=== PATIENT | female | born 1960 | race African-American/Black ===

== ENCOUNTER 2019-03-10 14:51 | Inpatient (IN) | payer SELFPAY ==
[~2019-03-10 14:51] MED LIST: Lidocaine 1% PF 5 ML VIAL ONE; Ondansetron PF 4 MG/2 ML Vial ONE; PHENYLEPHRINE-NS 100 MCG/ML 10 ML SYRINGE ONE; PROPOFOL 200 MG/20 ML VIAL ONE; Rocuronium Bromide 10 MG/ML (10ML VIAL) ONE; ePHEDrine/0.9% NaCl/PF SYRINGE 50 mg/10 ml ONE
[2019-03-10] MEDS ORDERED: Insulin Regular 300 UNITS/3 ML VIAL SC PRN (16:05)
[2019-03-10] MEDS ORDERED: hydrALAZINE 20 MG/ML VIAL SLOW IVP PRN ×2 (16:05→19:37)
[2019-03-10] MEDS ORDERED: Dextrose 50% Abboject 50 ML SYRINGE SLOW IVP PRN (16:05)
[2019-03-10] MEDS ORDERED: Ondansetron PF 4 MG/2 ML Vial IVP PRN ×2 (16:05→19:37)
[2019-03-10] MEDS ORDERED: Dextrose 5% in Water 1,000 ML IV PRN (16:05)
[2019-03-10] MEDS ORDERED: Promethazine HCl 25 MG/ML VIAL IM PRN ×3 (16:05→19:37)
[2019-03-10] MEDS ORDERED: Losartan 25 MG TAB PO SCH (16:15)
[2019-03-10] MEDS ORDERED: Sodium Chloride 0.9% 1,000 ML IV SCH (16:15)
[2019-03-10] MEDS ORDERED: Levothyroxine Sodium 125 MCG TAB PO SCH (16:15)
[2019-03-10] MEDS ORDERED: Morphine 4 MG/ML VIAL SLOW IVP PRN (16:19)
[2019-03-10] MEDS ORDERED: Morphine 2 MG/ML SYRINGE SLOW IVP PRN (16:19)
[2019-03-10] MEDS ORDERED: Lidocaine 1% w/Epinephrine 1:100K 20 ML VIAL ONE (16:51)
[2019-03-10] MEDS ORDERED: Bupivacaine 0.25% HCL 30 ML VIAL ONE (16:51)
[2019-03-10] MEDS ORDERED: Fentanyl 100 MCG/2 ML VIAL ONE ×2 (16:57→19:56)
[2019-03-10] MEDS ORDERED: HYDROmorphone 0.5 MG/0.5 ML SYRINGE ONE (16:58)
[2019-03-10] MEDS ORDERED: ceFOXitin 2 GM/50 ML Duplex BAG ONE (17:23)
--- NOTE | 2019-03-10 18:22 | CON ---
DATE OF CONSULTATION: 03/10/2019 CONSULTING PHYSICIAN: Lee Mar DO REASON FOR CONSULTATION: Incarcerated ventral hernia. HISTORY OF PRESENT ILLNESS: The patient is a morbidly obese 58-year-old black female. She has a history of a couple of prior abdominal operations, one of which was through an upper midline laparotomy and one of which was a right paramedian incision. These were both apparently done around 40 years ago. She acknowledges the presence of this hernia over about the past 10 years. She states she was told not to worry about it if it did not bother her. About 4 months ago, she presented to the hospital in [place] because this could not be reduced. It was painful. They were able to reduce the hernia in [place], but she tells me that she was not instructed to have surgical followup for the repair of this. She notes that about 48 hours ago that this has been protruding and progressively uncomfortable. She has been vomiting for 2 days now. She presented to the [facility] in [place] where CT scan was obtained demonstrating findings consistent with incarcerated ventral hernia. She was transferred to this facility for further surgical care. PAST MEDICAL HISTORY: 1. Hypertension. 2. Diabetes mellitus. 3. Morbid obesity. PAST SURGICAL HISTORY: 1. She had an appendectomy performed through a right paramedian incision about 40 years ago. 2. She had a laparotomy performed through a midline incision in her upper abdomen also about 40 years ago. She tells me this had something to do with a miscarriage or a fetus. They were not able to clearly tell me what had happened or what was done. 3. She had a robotic-assisted laparoscopic hysterectomy in 2010. MEDICATIONS: She takes losartan, what I assume is: 1. Furosemide. 2. Metformin. 3. Celebrex. ALLERGIES: NO KNOWN DRUG ALLERGIES. PERSONAL AND SOCIAL HISTORY: She lives in [place]. She is with 2 children. One of her daughters and a sister is present with her currently. She does not smoke. She drinks a few drinks every day, primarily beer. She receives her medical care at [facility]. REVIEW OF SYSTEMS: Otherwise, unremarkable. FAMILY HISTORY: Noncontributory. PHYSICAL EXAMINATION: VITAL SIGNS: She is afebrile. Her pulse is within normal limits. Blood pressure is elevated at 139/105. GENERAL: She is a well-developed, well-nourished, morbidly obese black female, resting in bed, in no acute distress. Nasogastric tube is in place. She is alert and oriented x3. HEAD, EYES, EARS, NOSE, AND THROAT: Unremarkable. NECK: Supple without mass or tenderness. LUNGS: Clear to auscultation throughout. CARDIAC: Regular rate and rhythm without murmur. ABDOMEN: Obese, but soft. Bowel sounds are present, but appear to be hypoactive. There was an easily visible bulging mass protruding at about the mid point between her 2 laparotomy incisions. There is some mild cutaneous discoloration over this. The mass is entirely unreducible. CT scan was reviewed. There is a fat containing ventral hernia superiorly and then the bowel containing ventral hernia, a little inferiorly. There also appears to potentially be a small umbilical hernia. LABORATORY DATA: Her CBC from earlier today reveals a white blood cell count is 7.5 with a hemoglobin of 16.4. Her chemistry panel reveals no acidosis. Her creatinine is 1.85, but I do not know if this is an elevated creatinine or not. In 2016, her creatinine was normal at 1.0. Her electrolytes are otherwise minimally unremarkable. ASSESSMENT: The patient with incarcerated ventral hernia with small bowel protruding through and showing evidence of obstruction. PLAN: Open repair of this hernia. Although she has a couple of other hernias, neither of these are acutely problematic and do not appear to require urgent treatment this evening. I would plan to address the hernia that has a small bowel protruding through it. I explained the course if this is found to be strangulated that it will involve small-bowel resection and informed them that mesh would not be able to be used. Otherwise, I would plan on using mesh if there is no evidence of bowel ischemia or infection. Job ID: [id number]
[2019-03-10] MEDS ORDERED: SUGAMMADEX SODIUM 500 MG/5 ML VIAL ONE (18:41)
[2019-03-10] MEDS ORDERED: PACU-Morphine 4MG/ML VIAL SLOW IVP PRN (18:53)
[2019-03-10] MEDS ORDERED: Promethazine HCl 25 MG/ML VIAL SLOW IVP PRN (18:53)
[2019-03-10] MEDS ORDERED: Ondansetron HCl/PF 4 MG/2 ML Vial IVP PRN (18:53)
[2019-03-10] MEDS ORDERED: HumaLOG 300 UNITS/3 ML VIAL SC PRN (19:37)
[2019-03-10] MEDS ORDERED: Famotidine/PF 20 mg/2ml Vial SLOW IVP SCH (21:00)
[2019-03-10 21:31] VITALS: BMI 44.2
[2019-03-10] MEDS: Sodium Chloride 0.9% 1,000 ML IV SCH (22:00)
[2019-03-10] MEDS: Famotidine/PF 20 mg/2ml Vial SLOW IVP SCH (22:00)
[2019-03-10] MEDS: CEFAZOLIN 2 GM in Premix Bag 1 BAG IVPB SCH (22:01)
[2019-03-10] MEDS: Famotidine 20 MG TAB PO SCH (22:01)
[2019-03-11] MEDS: Morphine 2 MG/ML SYRINGE SLOW IVP PRN ×2 (01:14→05:06)
[2019-03-11] MEDS: CEFAZOLIN 2 GM in Premix Bag 1 BAG IVPB SCH (05:07)
[2019-03-11] MEDS: Sodium Chloride 0.9% 1,000 ML IV SCH ×4 (05:07→23:57)
[2019-03-11 06:24] LABS: Anion Gap 12 mmol/L (10-20); BUN (Urea Nitrogen) 12 mg/dL (9.8-20.1); Calc. Creatinine Clearance 98 mL/min (70-130); Calcium 7.8 mg/dL (7.8-10.44); Carbon Dioxide 29 mmol/L (22-29); Chloride 103 mmol/L (98-107); Estimated GFR-MDRD 64; Glucose 159 mg/dL (70-105); Potassium 4.1 mmol/L (3.5-5.1); Sodium 140 mmol/L (136-145)
[2019-03-11 06:54] LABS: Band 8 % (5-11); Hemoglobin 12.8 g/dL (12.0-16.0); Lymphocytes 13 % (21-51); MDiff Complete? YES; Mean Corpuscular HGB CONC 31.9 g/dL (32.0-36.0); Mean Corpuscular Hemoglobin 30.4 pg (27.0-31.0); Mean Corpuscular Volume 95.3 fL (78.0-98.0); Mean Platelet Volume 7.6 fL (7.4-10.4); Monocytes 15 % (0-10); Neutrophil 63 % (42-75); Platelet Count 221 thou/uL (130-400); Platelet Morphology Comment Appears Adequate; RBC Distribution Width 12.8 % (11.5-14.5); RBC Morphology Normal; Reactive Lymphocytes 1 % (0-10); Red Blood Cell (RBC) Count 4.23 mill/uL (4.20-5.40); White Blood Cell (WBC) Count 6.1 thou/uL (4.8-10.8)
[2019-03-11] MEDS: Famotidine 20 MG TAB PO SCH ×2 (07:55→20:31)
[2019-03-11] MEDS: Famotidine/PF 20 mg/2ml Vial SLOW IVP SCH ×2 (07:59→20:33)
[2019-03-11] MEDS: Enoxaparin Sodium 40 MG/0.4 ML SYRINGE SC SCH (08:02)
[2019-03-11] MEDS: Morphine 4 MG/ML VIAL SLOW IVP PRN ×2 (14:26→18:41)
--- NOTE | 2019-03-11 15:45 | PDOC.GSPN ---
Surgery Progress Note: Subj - Subjective Patient reports: feels better, no flatus Narrative: Ms. Azalia Nicolas is a 58 y/o female that is post op day 1 for a ventral hernia repair with mesh done urgently due to an incarcerated loop of bowel. Patient denies any overnight events and reports that she is generally feeling better than she was when she was brought in. Reports abdominal soreness that has been well controlled with morphine. At its worst she rates it at a 10/ 10 pain localized to the anterior abdominal wall. She has been able to ambulate to the end of the mcguire and back in spite of the abdominal soreness. Surgery Progress Note: Obj - Vital signs Vital signs: Vital Signs - Most Recent Temp Pulse Resp BP Pulse Ox 99.8 F H 103 H 16 103/70 95 03/11/19 11:23 03/11/19 11:23 03/11/19 11:23 03/11/19 11:23 03/11/19 11:23 - Physical Exam General: obese, other (Alert and oriented with mild distress on movement. She is friendly and cooperative throughout the visit. NG tube suction has drained approximately 250 mL. On 2 L nasal canula. Wound drain exiting the left paramedial side of her abdomen.) Neck: no bruits, no joe distention Cardiovascular: regular rate and rhythm, no murmur, other (S1 and S2 heard clearly at all valve sites. No murmurs, rubs or gallops. Radial pulses and posterior tibial pulses palpated bilaterally and are symmetric. No pretibial edema.) Respiratory: clear to auscultation (no wheezes, rales, or rubs), normal respiratory effort. negative: normal expansion (limited chest expansion due to abdominal pain) Abdomen: soft, nondistended, decreased bowel sounds, appropriately tender. negative: guarding Wound: other (Median incision site appears clean, dry and intact. Minimal amount of blood noted on dressing. No erythema, calor, or other drainage from wound, Drain placed with serosanguinous fluid in the bulb.) Surgery Progress Note: Results - Labs Result Diagrams: 03/11/19 05:51 03/11/19 05:51 Lab results: Laboratory Results - last 24 hr Surgery Progress Note: A/P - Problem (1) Status post repair of ventral hernia Current Visit: Yes Code(s): Z98.890 - OTHER SPECIFIED POSTPROCEDURAL STATES; Z87.19 - PERSONAL HISTORY OF OTHER DISEASES OF THE DIGESTIVE SYSTEM Status: Acute Assessment and Plan: Ms. Azalia Nicolas is a 58 y.o. female status post ventral hernia repair with mesh for an incarcerated loop of bowel. - Patient has not had flatulence or a bowel movement with diminished bowel sounds. Recommend continuing to ambulate and notify nurse/physician if sudden onset of acute abdominal pain. - Rates abdominal soreness as 10/10 aggravated with movement especially after ambulating. Morphine has helped control pain. Continue 2 mg IVP Q2H PRN break- through pain - Patient has been able to ambulate to the end of the mcguire and back with assistance. Continue walking program. - Patient reports being able to blow Incentive spirometry up to 1500, recommended continuing. - Continue monitoring I's and O's. Continue IV Fluids - Normal saline @ 120 ml/ hr Agree. Will continue NG tube today.
--- NOTE | 2019-03-11 19:51 | PRG ---
DATE OF SERVICE: 03/11/2019 SUBJECTIVE: Ms. Nicolas is postoperative day #1 from open repair of an incarcerated ventral hernia. Azalia had 2 separate hernias, one had an incarcerated loop of small bowel and the other had incarcerated omentum. These were repaired in continuity with a single piece of 8 cm mesh. Secondary to her obstruction, nasogastric tube was left in place. She has no current significant evidence of bowel function. I therefore elected to leave the nasogastric tube in place for at least 24 hours. Please see note of medical student Brandon entered earlier today. In summary, she is stable and will continue to be monitored in the hospital until resolution of her ileus. Job ID: [id number]
[2019-03-12] MEDS: Morphine 2 MG/ML SYRINGE SLOW IVP PRN ×2 (00:18→06:28)
[2019-03-12] MEDS: Sodium Chloride 0.9% 1,000 ML IV SCH ×3 (06:38→16:17)
[2019-03-12] MEDS: Famotidine/PF 20 mg/2ml Vial SLOW IVP SCH ×2 (08:21→20:02)
[2019-03-12] MEDS: Enoxaparin Sodium 40 MG/0.4 ML SYRINGE SC SCH (08:26)
[2019-03-12] MEDS: Famotidine 20 MG TAB PO SCH ×2 (08:29→19:54)
[2019-03-12] MEDS: Morphine 4 MG/ML VIAL SLOW IVP PRN ×2 (08:32→16:12)
[2019-03-12] MEDS ORDERED: Acetaminophen 500 MG TAB PO PRN (19:53)
--- NOTE | 2019-03-12 20:20 | PRG ---
DATE OF SERVICE: 03/12/2019 SUBJECTIVE: Ms. Nicolas is postoperative day #2 from an open repair of incarcerated ventral hernia with mesh. She has no complaints today. She notes appropriate, but improving abdominal pain. Her nasogastric tube is still in place this morning. She believes she may have had a small amount of flatus. She tells me she is ambulating and urinating. She is taking ice chips and this appears to be the bulk of what is aspirated in her nasogastric tube. PHYSICAL EXAMINATION: VITAL SIGNS: Her temperature when I saw her earlier today was 98.3, but it went up to 101.1 this evening. Pulse remains somewhat elevated between 90 and 115. Blood pressure is 160/80. LUNGS: Clear to auscultation. ABDOMEN: Soft and does not appear to be tender except at the midline incision. Bowel sounds are absent currently. Drain output has been minimal. It was 20 mL on this day shift. LABORATORY DATA: There were no labs obtained today. ASSESSMENT: The patient appears to be doing well following her repair of incarcerated ventral hernia. She still appears to have an appropriate postoperative ileus. Since there is a low NG output, I will remove this and allow her to continue taking ice chips for now. She is encouraged to ambulate and use incentive spirometry. Job ID: [id number]
--- NOTE | 2019-03-12 22:24 | OP ---
DATE OF PROCEDURE: 03/10/2019 PREOPERATIVE DIAGNOSIS: Incarcerated ventral incisional hernia x2. PROCEDURE PERFORMED: Open repair of incarcerated ventral hernia with mesh (8 cm Ventralex mesh patch). ANESTHESIA: General endotracheal. INDICATIONS: The patient is a 58-year-old obese black female. She had a prior upper midline laparotomy an estimated 40 years in the past. She had hernia through this incision an estimated 10 years. She never sought medical care for this before. She does give a history of prior incarceration about four months ago. She presented at this time with pain and vomiting associated with hernia that could no longer be reduced. Preoperative CT scan documents not only the incarcerated small bowel within the hernia, but there is another hernia superiorly that has fatty tissue stuck within it. DESCRIPTION OF OPERATION: Informed consent was obtained and patient was taken to the operating room, where general endotracheal anesthesia was obtained with patient in supine position. Abdomen was prepped with ChloraPrep and draped in sterile fashion. A midline incision was created over the dominant palpable mass. The prior wide scar tissue was excised. Dissection was carried through the skin and shortly under the skin was encountered the hernia sac. This was dissected circumferentially down to the fascia. The sac was entered and there was some dark fluid within this. The sac was widely opened exposing dusky omentum and small bowel. I opened the fascial defect a little more superiorly, which relieved the tension on the incarcerated material and the small bowel reduced spontaneously. I then fully dissected the edges of the hernia defect on the anterior aspect circumferentially. I then dissected the posterior aspect of the fascia, primarily using blunt dissection. I then divided adhesions to the anterior abdominal wall with electrocautery. I was able to identify the segment of small bowel that had protruded through the defect. Although this was clearly dusky and somewhat ischemic when I first visualized it, after resting within the abdomen for just a few minutes that it clearly pinked up and appeared normal again. I decided therefore not to resect any bowel. There was no evidence of bowel leak or foul smell. As I dissected the posterior aspect of the fascia, it was noted that the second hernia defect was only about a centimeter superior to the incarcerated hernia. I decided therefore to open that fascial bridge and open the two hernias in continuity. The preperitoneal and omental tissue that was protruding through the superior defect was reduced. The hernia edges were mobilized circumferentially both anteriorly and posteriorly. This was measured and found to be about a 7 cm total defect. An 8 cm Ventralex mesh patch was obtained. It was placed in the preperitoneal space that had been developed with digital dissection. The tails of the mesh patch were secured to the fascia on either side of midline with single interrupted sutures of 0 Prolene. I then closed the defect in a vertical fashion using a series of interrupted [id number] sutures of 0 Prolene, incorporating bites of the anterior leaflet of the mesh patch. The wound was then copiously irrigated and all irrigants were aspirated. A #19 round fluted drain was placed within the subcutaneous tissue and brought out inferiorly, secured with a 3-0 nylon suture. The wound was then closed in layers with 3-0 Monocryl. Skin edis were utilized to approximate the skin edges. There were no complications. The patient tolerated the procedure well. A dry gauze dressing was applied and the patient was taken to the recovery room in stable condition. Job ID: [id number]
[2019-03-13] MEDS: Sodium Chloride 0.9% 1,000 ML IV SCH ×3 (01:30→20:27)
[2019-03-13] MEDS: HYDROcodone/Acetaminophen 7.5/325 mg Tablet PO PRN ×3 (05:25→20:21)
[2019-03-13 05:43] LABS: #Eosinphils 0.1 thou/uL (0.0-0.7); #Neutrophils 5.1 thou/uL (1.40-6.50); %Basophils 0.6 % (0.0-1.0); %Eosinophils 1.6 % (0.0-10.0); %Lymphocytes 23.9 % (21.0-51.0); %Monocytes 12.3 % (0.0-10.0); %Neutrophils 61.7 % (42.0-75.0); Hemoglobin 12.2 g/dL (12.0-16.0); Mean Corpuscular HGB CONC 31.5 g/dL (32.0-36.0); Mean Corpuscular Hemoglobin 30.4 pg (27.0-31.0); Mean Corpuscular Volume 96.3 fL (78.0-98.0); Mean Platelet Volume 7.8 fL (7.4-10.4); Platelet Count 214 thou/uL (130-400); RBC Distribution Width 12.5 % (11.5-14.5); Red Blood Cell (RBC) Count 4.02 mill/uL (4.20-5.40); White Blood Cell (WBC) Count 8.3 thou/uL (4.8-10.8)
[2019-03-13 06:05] LABS: Anion Gap 14 mmol/L (10-20); BUN (Urea Nitrogen) 6 mg/dL (9.8-20.1); Calc. Creatinine Clearance 136 mL/min (70-130); Calcium 8.2 mg/dL (7.8-10.44); Carbon Dioxide 26 mmol/L (22-29); Chloride 106 mmol/L (98-107); Estimated GFR-MDRD Greater than 90; Glucose 90 mg/dL (70-105); Potassium 3.6 mmol/L (3.5-5.1); Sodium 142 mmol/L (136-145)
[2019-03-13] MEDS: Famotidine/PF 20 mg/2ml Vial SLOW IVP SCH ×2 (08:19→20:23)
[2019-03-13] MEDS: Enoxaparin Sodium 40 MG/0.4 ML SYRINGE SC SCH (08:22)
[2019-03-13] MEDS: Famotidine 20 MG TAB PO SCH ×2 (08:22→20:19)
[2019-03-13] MEDS ORDERED: Levothyroxine Sodium 100 MCG TAB PO SCH (08:45)
[2019-03-13] MEDS: buPROPion HCl 100 MG TAB PO SCH (09:23)
[2019-03-13] MEDS: Losartan 25 MG TAB PO SCH (09:25)
[2019-03-13] MEDS: Furosemide 20 MG TAB PO SCH (09:25)
[2019-03-13] MEDS: metFORMIN 500 MG TAB PO SCH (15:39)
[2019-03-14] MEDS: Levothyroxine Sodium 100 MCG TAB PO SCH (05:28)
[2019-03-14] MEDS: metFORMIN 500 MG TAB PO SCH ×2 (08:08→16:33)
[2019-03-14] MEDS: Enoxaparin Sodium 40 MG/0.4 ML SYRINGE SC SCH (08:08)
[2019-03-14] MEDS: buPROPion HCl 100 MG TAB PO SCH (08:08)
[2019-03-14] MEDS: Famotidine/PF 20 mg/2ml Vial SLOW IVP SCH (08:09)
[2019-03-14] MEDS: Famotidine 20 MG TAB PO SCH ×2 (08:09→20:07)
[2019-03-14] MEDS: Furosemide 20 MG TAB PO SCH (08:09)
[2019-03-14] MEDS: Losartan 25 MG TAB PO SCH (08:09)
--- NOTE | 2019-03-14 09:56 | PRG ---
DATE OF SERVICE: 03/14/2019 SUBJECTIVE: The patient is status post open ventral hernia repair with mesh. She says she is doing well. Pain is well controlled. She is passing gas. She is tolerating clear liquids. OBJECTIVE: VITAL SIGNS: Temperature 98.2, pulse 98, and blood pressure 125/86. GENERAL: She is awake, alert. ABDOMEN: Obese, soft. Incision looks good. Drain output 35. ASSESSMENT: Doing well. PLAN: Full liquid diet. Ambulate. Job ID: [id number]
[2019-03-14] MEDS: HYDROcodone/Acetaminophen 7.5/325 mg Tablet PO PRN (20:07)
[2019-03-14 21:04] VITALS: TEMP 98.9
[2019-03-15] MEDS: Levothyroxine Sodium 100 MCG TAB PO SCH (05:42)
[2019-03-15 07:45] VITALS: BP 115/79
[2019-03-15] MEDS: Losartan 25 MG TAB PO SCH (08:13)
[2019-03-15] MEDS: Furosemide 20 MG TAB PO SCH (08:13)
[2019-03-15] MEDS: metFORMIN 500 MG TAB PO SCH (08:13)
[2019-03-15] MEDS: Famotidine 20 MG TAB PO SCH (08:13)
[2019-03-15] MEDS: Enoxaparin Sodium 40 MG/0.4 ML SYRINGE SC SCH (08:13)
[2019-03-15] MEDS: buPROPion HCl 100 MG TAB PO SCH (09:00)
== END 2019-03-15 14:56 | disposition home or self-care (01) | DRG 354 ==
LOC: ERS 14:51 → SDC/OP 19:52 → T4-B 20:35
PROVIDERS: ADMIT Surgery; ATTEND Surgery
PROC: 0WUF0JZ Supplement Abdominal Wall with Synthetic Substitute, Open Approach (ICD-10-PCS; principal; 2019-03-10)
DX: K43.6 Other and unspecified ventral hernia with obstruction, without gangrene (principal); Z68.41 Body mass index [BMI] 40.0-44.9, adult; K56.7 Ileus, unspecified; I10 Essential (primary) hypertension; E66.01 Morbid (severe) obesity due to excess calories; E11.9 Type 2 diabetes mellitus without complications; Z90.49 Acquired absence of other specified parts of digestive tract; Z90.710 Acquired absence of both cervix and uterus; Z79.84 Long term (current) use of oral hypoglycemic drugs; Z79.899 Other long term (current) drug therapy; Z87.19 Personal history of other diseases of the digestive system
CPT/HCPCS: 36415; 36416; 80048; 85025; 99285; C1781; J0690; J0694; J1170; J1650; J2001; J2270; J2405; J2704; J3010; S0020; S0028

== ENCOUNTER 2019-10-23 19:12 | Inpatient (IN) | payer OTHER, SELFPAY ==
--- NOTE | 2019-10-23 20:19 | PDOC.GSCN ---
Surgery Consult: HPI - Consult details Date: 10/23/19 Time: 20:16 Reason for consult: abdominal pain Requesting physician: Kennedy Ellison History of present illness: 10/23/19 20:17 58yo female presents with one week history of increasing abdominal pain with associated erythema. She was admitted in February for an incarcerated umbilical hernia, where she underwent a ventral hernia repair with mesh placement. She tolerated the procedure well and was subsequently discharged home. Over the last week she has had increasing abdominal pain around her incision site, which is well healed. This is associated with erythema and subjective fevers. She is tolerating diet with normal bowel function. She presented to the ER in [place] and was transferred for surgical management. Surgery Consult: ROS - Review of Systems All systems: 10 systems reviewed and no additional complaints unless stated below. Surgery Consult: H Past Medical History: DM, HTN, depression, obesity Past Surgical History: appendectomy, hysterectomy, midline celiotomy for unkown reason, tubal ligation - Past Family History Family history: reviewed and not pertinent - Past Social History Smoking Status: Never smoker Alcohol Use: rarely Drug Use History: none Surgery Consult: Exam - Physical Exam General: no distress, well developed, obese ENT: no congestion, no hearing loss, normal mucosa, normal nares, normal pinna Neck: no bruits, no lymphadectomy, no masses, no joe distention, trachea midline Respiratory: clear to auscultation, clear to percussion, normal expansion, normal respiratory effort Abdomen: soft, tender, other (erythema) Hernia: none Genitourinary (Female): normal external genitalia, normal perineum Integumentary: no abnormal pigmentation, no growths, no rash Neurologic: normal coordination, normal sensation Musculoskeletal: normal gait, normal posture Psychiatric: memory intact, oriented to time, oriented to person, oriented to place, speech is normal Surgery Consult: Meds - Medications MAR Reviewed: Yes Medications: Current Medications Vancomycin HCl 2 gm/ Sodium (Chloride) 500 mls @ 250 mls/hr IVPB NOW THUY Stop: 10/23/19 21:59 - Allergies Allergies/Adverse Reactions: Allergies Allergy/AdvReac Type Severity Reaction Status Date / Time No Known Drug Allergies Allergy Verified 03/11/19 05:05 Surgery Consult: Results - Radiology Interpretation CT scan - abdomen Additional comments: shows air collection in the subcutaneous tissues with surrounding inflammation. Tract suspicious for small bowel fistula. Surgery Consult: A/P - Problem (1) Enterocutaneous fistula Current Visit: Yes Code(s): K63.2 - FISTULA OF INTESTINE Status: Acute - Plan Plan: Admit to surgery Will plan for incision, drainage, and exploration with possible mesh explant and small bowel resection tomorrow morning. The relative risks and benefits of this procedure were discussed in detail with the patient, specifically addressing the risk of bowel resection, wound complications, and recurrence of her hernia. It was also discussed that she could need additional procedures. HTN: will continue home meds post operatively DM: will resume home meds postoperatively Depression: plan to resume meds after surgery NPO after midnight IVF
[2019-10-23] MEDS ORDERED: HYDROcodone/Acetaminophen 10/325 mg Tablet PO PRN (20:26)
[2019-10-23] MEDS ORDERED: Dextrose 5% in Water 1,000 ML IV PRN (20:26)
[2019-10-23] MEDS ORDERED: Ondansetron PF 4 MG/2 ML Vial IVP PRN (20:26)
[2019-10-23] MEDS ORDERED: hydrALAZINE 20 MG/ML VIAL SLOW IVP PRN (20:26)
[2019-10-23] MEDS ORDERED: Dextrose 50% Abboject 50 ML SYRINGE SLOW IVP PRN (20:26)
[2019-10-23] MEDS: Famotidine/PF 20 mg/2ml Vial SLOW IVP SCH (23:49)
[2019-10-23] MEDS: Morphine 2 MG/ML VIAL SLOW IVP PRN (23:57)
[2019-10-23] MEDS: D5 1/2 NS w/20 mEq KCL 1,000 ML IV SCH (23:57)
[2019-10-24 03:04] VITALS: BMI 41.5
[2019-10-24] MEDS: Morphine 2 MG/ML VIAL SLOW IVP PRN (05:50)
[2019-10-24] MEDS: D5 1/2 NS w/20 mEq KCL 1,000 ML IV SCH ×3 (06:08→23:48)
[2019-10-24 08:14] LABS: Anion Gap 12 mmol/L (10-20); BUN (Urea Nitrogen) 10 mg/dL (9.8-20.1); Calc. Creatinine Clearance 128 mL/min (70-130); Calcium 8.3 mg/dL (7.8-10.44); Carbon Dioxide 27 mmol/L (22-29); Chloride 100 mmol/L (98-107); Estimated GFR-MDRD Greater than 90; Glucose 165 mg/dL (70-105); Sodium 136 mmol/L (136-145)
[2019-10-24 08:19] LABS: Potassium 2.8 mmol/L (3.5-5.1)
[2019-10-24 08:24] LABS: Hemoglobin 11.2 g/dL (12.0-16.0); Mean Corpuscular HGB CONC 32.7 g/dL (32.0-36.0); Mean Corpuscular Hemoglobin 31.2 pg (27.0-31.0); Mean Corpuscular Volume 95.5 fL (78.0-98.0); Mean Platelet Volume 7.6 fL (7.4-10.4); Platelet Count 332 thou/uL (130-400); RBC Distribution Width 12.4 % (11.5-14.5); Red Blood Cell (RBC) Count 3.58 mill/uL (4.20-5.40); White Blood Cell (WBC) Count 15.7 thou/uL (4.8-10.8)
[2019-10-24] MEDS: Famotidine/PF 20 mg/2ml Vial SLOW IVP SCH ×2 (08:39→20:20)
[2019-10-24 09:20] LABS: Band 5 % (5-11); Lymphocytes 7 % (21-51); MDiff Complete? YES; Monocytes 11 % (0-10); Neutrophil 77 % (42-75); Platelet Morphology Comment Appears Adequate
[2019-10-24] MEDS ORDERED: Ondansetron PF 4 MG/2 ML Vial ONE (10:09)
[2019-10-24] MEDS ORDERED: diphenhydrAMINE 50 MG/ML VIAL ONE (10:09)
[2019-10-24] MEDS ORDERED: PROPOFOL 200 MG/20 ML VIAL ONE (10:09)
[2019-10-24] MEDS ORDERED: Lidocaine 1% PF 5 ML VIAL ONE (10:09)
[2019-10-24] MEDS ORDERED: PHENYLEPHRINE-NS 100 MCG/ML 10 ML SYRINGE ONE (10:09)
[2019-10-24] MEDS ORDERED: Succinylcholine Chloride 20 MG/ML 10 ml SYRINGE FS ONE (10:09)
[2019-10-24] MEDS ORDERED: Rocuronium Bromide 10 MG/ML (10ML VIAL) ONE (10:09)
[2019-10-24] MEDS ORDERED: Glycopyrrolate 0.2 MG/ML 5 ML SYRINGE ONE (10:09)
[2019-10-24] MEDS ORDERED: EPHEDRINE 25 MG/5 ML SYRINGE ONE (10:09)
[2019-10-24] MEDS ORDERED: Phenylephrine 10 MG/ML VIAL ONE ×2 (11:02→11:56)
[2019-10-24] MEDS ORDERED: Fentanyl 100 MCG/2 ML VIAL ONE ×3 (11:02→14:53)
[2019-10-24] MEDS ORDERED: Potassium Chloride 20 MEQ/100 ML PREMIX BAG ONE (11:12)
[2019-10-24 12:35] LABS: SARS-CoV-2 MS2 Positive; SARS-CoV-2 N Gene Negative; SARS-CoV-2 S Gene Negative; SARS-CoV-2 by NAA Not Detected (NotDetected); SARS-CoV-2 orf1ab Negative
[2019-10-24] MEDS ORDERED: ceFOXitin 1 GM VIAL ONE (12:50)
[2019-10-24] MEDS ORDERED: cefOXitin Sodium/Dextrose 2 GM/50 ML BAG ONE (12:51)
[2019-10-24] MEDS ORDERED: Promethazine HCl 25 MG/ML VIAL SLOW IVP PRN (14:49)
[2019-10-24] MEDS ORDERED: Ketorolac Tromethamine 30 MG/ML VIAL IVP PRN (14:49)
[2019-10-24] MEDS ORDERED: Promethazine HCl 25 MG/ML VIAL IM PRN ×2 (14:49→14:52)
[2019-10-24] MEDS ORDERED: PACU-Morphine 4MG/ML VIAL SLOW IVP PRN (14:49)
[2019-10-24] MEDS ORDERED: fentaNYL Citrate/PF 2,000 MCG in Sodium Chloride 0.9% 60 ML IV PRN (14:52)
[2019-10-24] MEDS ORDERED: Naloxone HCl 0.4 mg/ml Vial IV PRN (14:52)
[2019-10-24] MEDS ORDERED: diphenhydrAMINE 25 MG CAP PO PRN (14:52)
[2019-10-24] MEDS ORDERED: diphenhydrAMINE 50 MG/ML VIAL IVP PRN (14:52)
[2019-10-24] MEDS ORDERED: Ondansetron PF 4 MG/2 ML Vial IVP PRN (14:52)
[2019-10-24] MEDS ORDERED: Zolpidem Tartrate 5 MG TAB PO PRN (14:52)
[2019-10-24] MEDS ORDERED: diphenhydrAMINE 50 MG/ML VIAL IM PRN (14:52)
[2019-10-24] MEDS ORDERED: Communication Order-Pharmacy FS SCH (15:00)
--- NOTE | 2019-10-24 15:36 | PDOC.OP ---
Operative Note - Operative Note Operative Note: DATE OF SURGERY: October 24, 2019 SURGEON: Yonis Cerrato MD PREOPERATIVE DIAGNOSIS: Enterocutaneous fistula Subcutaneous abscess POSTOPERATIVE DIAGNOSIS: Enterocutaneous fistula Subcutaneous abscess PROCEDURE: Exploratory laparotomy Small bowel resection Partial omentectomy Drainage of intraperitoneal abscess Incision and drainage of subcutaneous abscess Mesh explantation Incisional hernia repair Debridement of subcutaneous tissue, muscle, and fascia (30 cm x 10 cm) Application of negative pressure wound therapy device greater than 50 cm INDICATIONS: This is a 58-year-old female who underwent ventral hernia repair with mesh prosthesis in February of this year. She started to develop abdominal pain associated with bulging and erythema. She presented to an outside emergency department where computed tomography of the abdomen demonstrated a large subcutaneous air collection with what appeared to be a fistulous tract. PROCEDURE IN DETAIL: The patient was brought to the operating room and positioned supine on the operating room table. After induction of general, endotracheal anesthesia, the patient was prepared and draped in the usual fashion. Prior to beginning this procedure, a complete timeout was performed with all members of the operative team being present and in agreement. The area overlying her previous hernia repair was incised. Malodorous purulent material was found within the cavity. Exposed mesh was also noted. The cavity was extended to find a portion of the midline there was uninvolved. The peritoneal cavity was entered. Extensive lysis of adhesions was performed around an inflammatory mass of omentum, small bowel, and transverse colon. The mesh was densely adherent to the posterior aspect of the fascia. This was dissected free and removed from the abdominal wall. Lysis of adhesions continued to isolate the small bowel involved with enterocutaneous fistula. Total time with lysis of adhesions was 110 minutes. Approximately 25% of the omentum was involved in the inflammatory mass. A partial omentectomy was performed using electrocautery; dividing the major vessels between ties. Once the small bowel with the fistula was isolated, it was divided between sequential firings of a blue staple load. The mesentery was divided between ties. A [id number], functional end-to-end anastomosis was created with a blue staple load. The common enterotomy was closed in 2 layers with 3-0 PDS suture in a running fashion. The abdominal cavity was examined and the sidewall of the intra-abdominal abscess was debrided from the omentum. The abdomen was inspected and hemostasis achieved. It was copiously irrigated and debris and fluid suctioned free. The fascia was closed in a primary fashion using 2-0 PDS suture in a running fashion. One suture beginning cranially, 1 suture began caudally, and they were tied in the middle. Intermittent 0Vicryl sutures were placed along the suture line to assist with tension release. Once the midline fascia was closed, the subcutaneous abscess cavity was sharply debrided to remove all fibrinous and necrotic material. This included skin, subtendinous tissue, fascia, and muscle. The area of debridement was 30 x 10 cm. The cavity was irrigated free of debris and necrotic material. A negative pressure wound therapy device was placed in the cavity in the usual fashion. At the conclusion of the case, all sponge and instrument counts were correct. ESTIMATED BLOOD LOSS: 200cc COMPLICATIONS: None INTRAOPERATIVE BLOOD TRANSFUSIONS: None GRAFTS / IMPLANTS: None SPECIMENS: Small bowel with enterocutaneous fistula and mesh DISPOSITION: The patient was transported to the postoperative recovery unit in good conditions to be returned to the floor when criteria met.
[2019-10-24 16:13] LABS: Anion Gap 17 mmol/L (10-20); BUN (Urea Nitrogen) 8 mg/dL (9.8-20.1); Calc. Creatinine Clearance 122 mL/min (70-130); Calcium 8.1 mg/dL (7.8-10.44); Carbon Dioxide 22 mmol/L (22-29); Chloride 101 mmol/L (98-107); Estimated GFR-MDRD 88; Glucose 188 mg/dL (70-105); Potassium 4.6 mmol/L (3.5-5.1); Sodium 135 mmol/L (136-145)
[2019-10-24] MEDS: Enoxaparin Sodium 40 MG/0.4 ML SYRINGE SC SCH (20:20)
[2019-10-24] MEDS: cefOXitin Sodium/Dextrose,Iso 2 GM in Premix Bag 1 BAG IVPB SCH (20:20)
[2019-10-25] MEDS: cefOXitin Sodium/Dextrose,Iso 2 GM in Premix Bag 1 BAG IVPB SCH ×3 (06:08→20:46)
[2019-10-25] MEDS: Levothyroxine Sodium 125 MCG TAB PO SCH (06:08)
[2019-10-25] MEDS: buPROPion HCl 100 MG TAB PO SCH (08:45)
[2019-10-25] MEDS: CeleCOXIB 100 MG CAP PO SCH (08:46)
[2019-10-25] MEDS: Famotidine/PF 20 mg/2ml Vial SLOW IVP SCH ×2 (08:46→20:45)
[2019-10-25] MEDS: Losartan 25 MG TAB PO SCH (08:47)
[2019-10-25] MEDS: D5 1/2 NS w/20 mEq KCL 1,000 ML IV SCH ×2 (08:47→20:51)
[2019-10-25] MEDS ORDERED: Acetaminophen/Codeine 30-300mg Tablet PO PRN (11:28)
--- NOTE | 2019-10-25 11:28 | PDOC.BPN ---
- Brief Progress Note Encounter Date: 10/25/19 Encounter Time: 11:26 Doing well s/p resection of small bowel with enterocutaneous fistula, explantation of mesh, and drainage of peritoneal subcutaneous abscesses. Postoperative pain well controlled with current regimen. Tolerating clear liquid diet, without nausea or vomiting. Denies flatus or bowel movements. Ambulating independently. EXAM: General: Alert and oriented, no acute distress, resting comfortably Pulmonary: No dyspnea or difficulty breathing Abdomen: Soft, non-distended, incisions clean, wound VAC in place CV: Regular rate and rhythm, palpable distal pulses Extremities: No edema I/O: 20 oral intake 4 voids of minimal output. Required straight catheterization with minimal output. LABORATORY / IMAGING: Laboratory analysis reviewed and demonstrates stable hemoglobin at 11.2. Mild leukocytosis of 15.7. Otherwise her basic metabolic panel is grossly normal PLAN: Transition pain regimen to oral regimen Bowel regimen Strict I's and O's Consult wound care 500 cc bolus [ ]
[2019-10-25] MEDS ORDERED: Sodium Chloride 0.9% 500 ML IV SCH (11:30)
[2019-10-25] MEDS: Enoxaparin Sodium 40 MG/0.4 ML SYRINGE SC SCH (20:45)
[2019-10-26] MEDS: D5 1/2 NS w/20 mEq KCL 1,000 ML IV SCH ×3 (05:30→20:30)
[2019-10-26] MEDS: cefOXitin Sodium/Dextrose,Iso 2 GM in Premix Bag 1 BAG IVPB SCH ×2 (06:25→13:06)
[2019-10-26] MEDS: Levothyroxine Sodium 125 MCG TAB PO SCH (06:25)
[2019-10-26] MEDS: buPROPion HCl 100 MG TAB PO SCH (09:03)
[2019-10-26] MEDS: CeleCOXIB 100 MG CAP PO SCH (09:03)
[2019-10-26] MEDS: Losartan 25 MG TAB PO SCH (09:03)
[2019-10-26] MEDS: Polyethylene Glycol 3350 17 GM Packet PO SCH (09:04)
[2019-10-26] MEDS: Famotidine/PF 20 mg/2ml Vial SLOW IVP SCH ×2 (09:04→20:30)
[2019-10-26 11:08] LABS: Hemoglobin 9.9 g/dL (12.0-16.0); Mean Corpuscular HGB CONC 31.7 g/dL (32.0-36.0); Mean Corpuscular Hemoglobin 31.1 pg (27.0-31.0); Mean Corpuscular Volume 98.1 fL (78.0-98.0); Mean Platelet Volume 7.5 fL (7.4-10.4); Platelet Count 340 thou/uL (130-400); RBC Distribution Width 12.5 % (11.5-14.5); Red Blood Cell (RBC) Count 3.18 mill/uL (4.20-5.40); White Blood Cell (WBC) Count 12.9 thou/uL (4.8-10.8)
[2019-10-26 11:21] LABS: Anion Gap 14 mmol/L (10-20); BUN (Urea Nitrogen) 4 mg/dL (9.8-20.1); Calc. Creatinine Clearance 119 mL/min (70-130); Carbon Dioxide 26 mmol/L (22-29); Chloride 99 mmol/L (98-107); Estimated GFR-MDRD 85; Glucose 162 mg/dL (70-105); Potassium 3.6 mmol/L (3.5-5.1); Sodium 135 mmol/L (136-145)
[2019-10-26 12:28] LABS: Eosinophils 2 % (0-10); Hypochromia SLIGHT = 6-15 cells (100X) (0-5/hpf); Lymphocytes 8 % (21-51); MDiff Complete? YES; Monocytes 9 % (0-10); Neutrophil 81 % (42-75); Platelet Morphology Comment Appears Adequate
[2019-10-26] MEDS ORDERED: Dextrose 50% Abboject 50 ML SYRINGE SLOW IVP PRN (15:15)
[2019-10-26] MEDS ORDERED: Insulin Regular 300 UNITS/3 ML VIAL SC PRN (15:15)
[2019-10-26] MEDS ORDERED: Dextrose 5% in Water 1,000 ML IV PRN (15:15)
--- NOTE | 2019-10-26 15:21 | PDOC.BPN ---
- Brief Progress Note Encounter Date: 10/26/19 Encounter Time: 15:19 Doing well s/p excision of enterocutaneous fistula with mesh explantation, and ventral hernia repair. Postoperative pain well controlled with current regimen. Tolerating clear liquid diet, without nausea or vomiting. Denies flatus or bowel movements. Ambulating independently. EXAM: VS: T 98.3 HR 72 BP 125/85 RR 16 SpO2 [ ] General: Alert and oriented, no acute distress, resting comfortably Pulmonary: No dyspnea or difficulty breathing Abdomen: Soft, non-distended, incisions clean, wound VAC in place CV: Regular rate and rhythm, palpable distal pulses Extremities: No edema I/O: 425 oral intake 500 UOP LABORATORY / IMAGING: Laboratory analysis reviewed and demonstrates improvement of leukocytosis from 15.7-12.9. Minor drop in hemoglobin from 11.2-9.9. Otherwise labs grossly normal. PLAN: Continue clear liquid diet with ambulation awaiting bowel function. Plan to advance to regular diet with flatus Continue ambulation Continue DVT prophylaxis Wound care plans for wound VAC exchange tomorrow Begin sliding scale insulin for glucose levels 150-160 [ ]
[2019-10-26] MEDS ORDERED: Acetaminophen/Codeine 30-300mg Tablet PO PRN (15:53)
[2019-10-26] MEDS: Enoxaparin Sodium 40 MG/0.4 ML SYRINGE SC SCH (20:30)
[2019-10-27] MEDS: Levothyroxine Sodium 125 MCG TAB PO SCH (05:06)
[2019-10-27] MEDS: Famotidine/PF 20 mg/2ml Vial SLOW IVP SCH ×2 (08:07→21:12)
[2019-10-27] MEDS: CeleCOXIB 100 MG CAP PO SCH (08:07)
[2019-10-27] MEDS: D5 1/2 NS w/20 mEq KCL 1,000 ML IV SCH ×2 (08:07→15:09)
[2019-10-27] MEDS: Losartan 25 MG TAB PO SCH (08:07)
[2019-10-27] MEDS: Polyethylene Glycol 3350 17 GM Packet PO SCH (08:07)
[2019-10-27] MEDS: buPROPion HCl 100 MG TAB PO SCH (08:07)
[2019-10-27] MEDS: Morphine 2 MG/ML VIAL SLOW IVP PRN ×2 (11:17→15:11)
[2019-10-27] MEDS ORDERED: Acetaminophen 500 MG TAB PO PRN (15:35)
[2019-10-27] MEDS ORDERED: Ketorolac Tromethamine 30 MG/ML VIAL IVP PRN (15:35)
[2019-10-27] MEDS ORDERED: traMADol HCl 50 MG TAB PO PRN (15:35)
--- NOTE | 2019-10-27 15:59 | PRG ---
DATE OF SERVICE: 10/27/2019 SUBJECTIVE: Ashley Nicolas is doing well today. She is admitted over the weekend, seen by Dr. Cerrato. The patient had on March 12, 2019, open repair of incarcerated ventral hernia with mesh a cm around. She had presented with enterocutaneous fistula. Dr. Cerrato on 10/24/2019 performed laparotomy, removal of the mesh, segmental bowel resection, anastomosis, primary closure of the fascia without mesh, and wound VAC application. The patient reports that she is on disability. Currently, she is tolerating her liquids without nausea or vomiting. She has not passed flatus or stool. She denies experiencing nausea or vomiting. OBJECTIVE: VITAL SIGNS: Temperature 97.8, pulse 86, blood pressure 106/74. LUNGS: Clear to auscultation. CARDIAC: Regular rate and rhythm without murmur or gallop. ABDOMEN: Soft, nontender. EXTREMITIES: Unremarkable. LABORATORY DATA: None today, none indicated. Accu-Cheks . ASSESSMENT AND PLAN: The patient is doing well. Wound VAC was changed today. Whenever outpatient wound VAC arrangements are made and GI function is better, she can be discharged home hopefully in the next 1 to 2 days. We will continue clear liquids at this time and resume full liquids later today. We will see how she is tolerating diet tomorrow. We would recommend she be out of bed most of the day and up in a chair most of the day and ambulating frequently. We will begin Lovenox DVT prophylaxis, which she is on Job ID: [id number]
[2019-10-27] MEDS: metFORMIN 500 MG TAB PO SCH (16:22)
[2019-10-27] MEDS: Enoxaparin Sodium 40 MG/0.4 ML SYRINGE SC SCH (21:12)
[2019-10-28] MEDS: Levothyroxine Sodium 125 MCG TAB PO SCH (05:27)
[2019-10-28] MEDS: CeleCOXIB 100 MG CAP PO SCH (08:04)
[2019-10-28] MEDS: metFORMIN 500 MG TAB PO SCH ×2 (08:04→16:16)
[2019-10-28] MEDS: Furosemide 20 MG TAB PO SCH (08:04)
[2019-10-28] MEDS: Polyethylene Glycol 3350 17 GM Packet PO SCH (08:05)
[2019-10-28] MEDS: Losartan 25 MG TAB PO SCH (08:05)
[2019-10-28] MEDS: buPROPion HCl 100 MG TAB PO SCH (08:05)
[2019-10-28] MEDS: Famotidine/PF 20 mg/2ml Vial SLOW IVP SCH (08:05)
[2019-10-28] MEDS ORDERED: Ondansetron PF 4 MG/2 ML Vial IVP PRN (10:36)
[2019-10-28] MEDS ORDERED: Ondansetron ODT 4 MG TAB PO PRN (10:36)
--- NOTE | 2019-10-28 12:53 | PRG ---
DATE OF SERVICE: 10/28/2019 SUBJECTIVE: Ms. Nicolas is doing better today. She still has some nausea, although she is tolerating her diabetic diet. OBJECTIVE: VITAL SIGNS: Temperature 97.9 degrees, pulse 79, blood pressure 148/80. She has passed flatus. She has had a bowel movement. LUNGS: Clear to auscultation. CARDIAC: Regular rate and rhythm without murmur or gallop. ABDOMEN: Soft, nontender. Wound VAC in place. ASSESSMENT AND PLAN: Doing well. Recovering GI function, advance diet, saline lock. We will plan discharge home in 24 to 48 hours depending on clinical course. She will need an outpatient wound VAC care arrangements. Job ID: [id number]
[2019-10-28] MEDS: traMADol HCl 50 MG TAB PO PRN (16:16)
[2019-10-28] MEDS: Enoxaparin Sodium 40 MG/0.4 ML SYRINGE SC SCH (20:05)
[2019-10-29] MEDS: Levothyroxine Sodium 125 MCG TAB PO SCH (06:07)
[2019-10-29] MEDS: buPROPion HCl 100 MG TAB PO SCH (08:16)
[2019-10-29] MEDS: metFORMIN 500 MG TAB PO SCH (08:16)
[2019-10-29] MEDS: Furosemide 20 MG TAB PO SCH (08:16)
[2019-10-29] MEDS: CeleCOXIB 100 MG CAP PO SCH (08:16)
[2019-10-29] MEDS: Losartan 25 MG TAB PO SCH (08:17)
[2019-10-29] MEDS: Polyethylene Glycol 3350 17 GM Packet PO SCH (08:17)
--- NOTE | 2019-10-29 09:41 | PRG ---
DATE OF SERVICE: 10/29/2019 SUBJECTIVE: Ashley Nicolas is doing well today. Her nausea has resolved. She is tolerating a regular diet. She is having bowel movements. She is passing flatus. Her pain is minimal. She has only taken one Ultram yesterday, none since. She takes occasional Tylenol. Hydrocodone has been discontinued. Home pain regimen will be Tylenol, amfr-wom-[place] Aleve, and Ultram #30 one refill left on the chart. OBJECTIVE: LUNGS: Clear to auscultation. CARDIAC: Regular rhythm without murmur or gallop. ABDOMEN: Soft, nontender. Good bowel sounds. Wound VAC in place. ASSESSMENT AND PLAN: Resolved enterocutaneous fistula with infected mesh removal and primary closure of the fascia. Wound VAC on the wound. The patient has transportation difficulties from [facility]. Apparently, she is unfunded. The patient is ready for discharge home today. lasting floorworker is working on outpatient wound care arrangements and whenever those are made and the [facility] wound VAC approved, she can be discharged home. She can follow up with Dr. Cintron in about 10 days. Job ID: [id number]
[2019-10-29] MEDS: traMADol HCl 50 MG TAB PO PRN (15:52)
[2019-10-29 16:08] VITALS: BP 169/91; TEMP 98.3
--- NOTE | 2019-10-30 00:05 | DIS ---
DATE OF ADMISSION: 10/23/2019 DATE OF DISCHARGE: 10/29/2019 Discharge on 10/28 possibly pending wound VAC [facility] approval. DISCHARGE DIAGNOSES: 1. Open wound abdomen, wound care and wound VAC twice a week [facility] outpatient. The patient has transportation difficulty from where she lives in [facility]. 2. Enterocutaneous fistula with infected mesh, status post laparotomy, removal of mesh, small bowel resection, primary fascial closure, and wound left open. 3. Diabetes mellitus. 4. Hypothyroidism. PROCEDURES THIS HOSPITALIZATION: CT scan of the abdomen and pelvis 10/23/2019 revealing a larger collection of subcutaneous tissue in the midline over previous hernia repair. No free air in the abdomen. Note 03/12/2019, Dr. Cintron performed open incisional hernia repair with 8 cm Ventralex mesh. Procedures this hospitalization, Dr. Cerrato performed laparotomy, removal of mesh, small bowel resection, anastomosis, primary fascial closure without mesh, partial wound closure, and wound VAC application. DISCHARGE MEDICATIONS: 1. Tylenol. 2. Motrin [id number] for pain. 3. Ultram #30 one refill as needed. Resume home medications; 1. Metformin. 2. Losartan. 3. Levothyroxine. 4. Furosemide. 5. Celebrex. FOLLOWUP: Dr. Cintron approximately a week to 10 days. Outpatient wound care. HISTORY: A 58-year-old female, morbidly obese, increasing abdominal pain one week, seen in the emergency room, above CAT scan noted, seen by Dr. Cerrato, taken to the operating room for the above procedure. Discharged with the plan. Resume her diet. Tylenol and Ultram for pain. Motrin p.r.n. pain. Follow up with Dr. Cintron 10 days. Job ID: [id number]
[2019-11-01] MEDS ORDERED: Ibuprofen 600 MG TAB PO PRN (15:35)
== END 2019-10-29 16:40 | disposition home or self-care (01) | DRG 329 ==
LOC: ERS 19:12 → SURG A 20:31
PROVIDERS: ADMIT Surgery; ATTEND Surgery
PROC: 0DB80ZZ Excision of Small Intestine, Open Approach (ICD-10-PCS; principal; 2019-10-24)
PROC: 0DBU0ZZ Excision of Omentum, Open Approach (ICD-10-PCS; 2019-10-24)
PROC: 0W9G0ZZ Drainage of Peritoneal Cavity, Open Approach (ICD-10-PCS; 2019-10-24)
PROC: 0WQF0ZZ Repair Abdominal Wall, Open Approach (ICD-10-PCS; 2019-10-24)
PROC: 0WPF0JZ Removal of Synthetic Substitute from Abdominal Wall, Open Approach (ICD-10-PCS; 2019-10-24)
PROC: 0DN80ZZ Release Small Intestine, Open Approach (ICD-10-PCS; 2019-10-24)
PROC: 0KBL0ZZ Excision of Left Abdomen Muscle, Open Approach (ICD-10-PCS; 2019-10-24)
DX: K63.2 Fistula of intestine (principal); K65.1 Peritoneal abscess; A41.9 Sepsis, unspecified organism; T85.79XA Infection and inflammatory reaction due to other internal prosthetic devices, implants and grafts, initial encounter; Z68.41 Body mass index [BMI] 40.0-44.9, adult; L03.311 Cellulitis of abdominal wall; I96 Gangrene, not elsewhere classified; E03.9 Hypothyroidism, unspecified; Z20.828 Contact with and (suspected) exposure to other viral communicable diseases; Y83.8 Other surgical procedures as the cause of abnormal reaction of the patient, or of later complication, without mention of misadventure at the time of the procedure; E11.9 Type 2 diabetes mellitus without complications; I10 Essential (primary) hypertension; F32.9 Major depressive disorder, single episode, unspecified; E66.9 Obesity, unspecified; Z98.51 Tubal ligation status; Z90.49 Acquired absence of other specified parts of digestive tract; Z90.710 Acquired absence of both cervix and uterus
CPT/HCPCS: 36415; 36416; 36600; 80048; 83605; 85025; 87635; 88307; 96365; 96366; J0694; J1200; J1650; J1815; J1885; J2270; J2370; J2405; J2704; J3010; J3370; J3480; J3490; J7030; Q0162; S0028; U0003

== ENCOUNTER 2023-01-09 15:38 | Outpatient (CLI) | payer MEDICARE ==
[2023-01-09 16:55] LABS: #Eosinphils 0.1 10x3/uL (0.0-0.5); #Monocytes 0.5 10x3/uL (0.0-1.1); #Neutrophils 2.8 10x3/uL (1.5-8.4); %Basophils 0.6 % (0.0-2.0); %Eosinophils 1.7 % (0.0-6.0); %Lymphocytes 37.5 % (18.0-47.0); %Monocytes 9.4 % (0.0-10.0); %Neutrophils 50.6 % (40.0-75.0); Hematocrit 39.5 % (34.9-44.5); Hemoglobin 12.9 g/dL (12.0-15.5); Mean Corpuscular HGB CONC 32.7 g/dL (32.0-36.0); Mean Corpuscular Hemoglobin 30.9 pg (27.0-33.0); Mean Corpuscular Volume 94.7 fl (81.6-98.3); Mean Platelet Volume 9.5 fl (7.4-10.4); Platelet Count 268 10x3/uL (150-450); RBC Distribution Width 12.2 % (11.5-14.5); Red Blood Cell (RBC) Count 4.17 10x6/uL (3.90-5.03); White Blood Cell (WBC) Count 5.4 10x3/uL (3.5-10.5)
[2023-01-09 16:59] LABS: Anion Gap 17 mmol/L (10-20); BUN (Urea Nitrogen) 13 mg/dL (9.8-20.1); Calc. Creatinine Clearance 0 mL/min (70-130); Calcium 9.4 mg/dL (7.8-10.44); Carbon Dioxide 26 mmol/L (23-31); Chloride 100 mmol/L (98-107); Estimated GFR 47; Glucose 108 mg/dL (80-115); Potassium 3.9 mmol/L (3.5-5.1); Sodium 139 mmol/L (136-145)
== END 2023-01-09 15:39 | disposition home or self-care (01) ==
LOC: LABBT 15:38
PROVIDERS: ATTEND Specialist
DX: Z01.818 Encounter for other preprocedural examination (principal); K43.2 Incisional hernia without obstruction or gangrene
CPT/HCPCS: 71046; 80048; 84443; 85025; 93005; 93010

== ENCOUNTER 2023-01-09 16:00 | Inpatient (IN) | payer MEDICARE ==
[2023-01-15] MEDS ORDERED: Ketorolac Tromethamine 30 MG/ML VIAL ONE (11:20)
[2023-01-15] MEDS ORDERED: Acetaminophen 500 MG TAB ONE (11:20)
[2023-01-15] MEDS ORDERED: Bupivacaine 0.25% HCL 30 ML VIAL ONE (13:02)
[2023-01-15] MEDS ORDERED: EPINEPHrine 1 MG/ML VIAL ONE (13:02)
[2023-01-15] MEDS ORDERED: PROPOFOL 20 ML ONE (13:04)
[2023-01-15] MEDS ORDERED: Lidocaine 1% PF 5 ML VIAL ONE ×2 (13:05→13:46)
[2023-01-15] MEDS ORDERED: Rocuronium Bromide 10 MG/ML (10ML VIAL) ONE ×2 (13:05→13:46)
[2023-01-15] MEDS ORDERED: Dexamethasone 4 mg/ml Vial ONE (13:05)
[2023-01-15] MEDS ORDERED: Ondansetron PF 4 MG/2 ML Vial ONE ×2 (13:05→13:46)
[2023-01-15] MEDS ORDERED: fentaNYL 50 mcg/mL 1 mL Vial ONE ×3 (13:10→18:22)
[2023-01-15] MEDS ORDERED: Sodium Chloride 0.9% 100 ML ONE (13:20)
[2023-01-15] MEDS ORDERED: CEFAZOLIN 2 GM VIAL ONE (13:20)
[2023-01-15] MEDS ORDERED: Midazolam HCl 2 mg/2 ml Vial ONE (13:24)
[2023-01-15] MEDS ORDERED: Lidocaine 1.5% w/Epi 1:200K 30 ML VIAL (Epid Use) ONE (13:30)
[2023-01-15] MEDS ORDERED: Promethazine HCl 25 MG/ML VIAL IM PRN ×2 (13:45→17:32)
[2023-01-15] MEDS ORDERED: traMADol HCl 50 MG TAB PO PRN ×2 (13:45)
[2023-01-15] MEDS ORDERED: Bupivacaine 0.25% 10 ML VIAL EPIDURAL PRN (13:45)
[2023-01-15] MEDS ORDERED: Naloxone HCl 0.4 mg/ml Vial IVP PRN (13:45)
[2023-01-15] MEDS ORDERED: diphenhydrAMINE 25 MG CAP PO PRN (13:45)
[2023-01-15] MEDS ORDERED: Fentanyl/Bupivacaine 100 ML EPIDURAL SCH (13:45)
[2023-01-15] MEDS ORDERED: Promethazine HCl 25 MG SUPP PR PRN (13:45)
[2023-01-15] MEDS ORDERED: diphenhydrAMINE 50 MG/ML VIAL IM PRN (13:45)
[2023-01-15] MEDS ORDERED: Moisturizing Cream (Eucerin) 113 GM JAR TOP PRN (13:45)
[2023-01-15] MEDS ORDERED: Naloxone HCl 0.4 mg/ml Vial IV PRN (13:45)
[2023-01-15] MEDS ORDERED: diphenhydrAMINE 50 MG/ML VIAL IVP PRN (13:45)
[2023-01-15] MEDS ORDERED: HYDROcodone/Acetaminophen 5/325 mg Tablet PO PRN ×2 (13:45)
[2023-01-15] MEDS ORDERED: Zolpidem Tartrate 5 MG TAB PO PRN (13:45)
[2023-01-15] MEDS ORDERED: ePHEDrine Sulfate 50 MG/10 ML VIAL ONE ×2 (13:46→14:00)
[2023-01-15] MEDS ORDERED: PROPOFOL 200 MG/20 ML VIAL ONE (13:46)
[2023-01-15] MEDS ORDERED: PHENYLEPHRINE-NS 100 MCG/ML 10 ML SYRINGE ONE ×3 (13:46→14:40)
[2023-01-15] MEDS ORDERED: Dexamethasone 20 MG/5 ML VIAL ONE (13:46)
[2023-01-15] MEDS ORDERED: Ropivacaine 0.5% HCl/PF (150 MG/30 ML VIAL) ONE (13:49)
[2023-01-15] MEDS ORDERED: ACTIVE EPIDURAL FS PRN (13:49)
[2023-01-15] MEDS ORDERED: fentaNYL PF 100 MCG/2 ML SYRINGE ONE (13:59)
[2023-01-15] MEDS ORDERED: Sodium Chloride 0.9% 0 ML ONE (14:37)
[2023-01-15] MEDS ORDERED: Phenylephrine 40 MG/NS 250 ML 250 ML ONE (14:48)
[2023-01-15] MEDS ORDERED: SUGAMMADEX SODIUM 200 MG/2 ML VIAL ONE ×2 (16:39→17:17)
[2023-01-15] MEDS ORDERED: Ondansetron HCl/PF 4 MG/2 ML Vial IVP PRN (17:32)
[2023-01-15] MEDS ORDERED: Dextrose 50% Abboject 50 ML SYRINGE SLOW IVP PRN (17:49)
[2023-01-15] MEDS ORDERED: Glucagon 1 MG/ML KIT IM PRN (17:49)
[2023-01-15] MEDS ORDERED: Dextrose 5% in Water 1,000 ML IV PRN (17:49)
[2023-01-15] MEDS ORDERED: TETANUS, DIPHTHERIA TOX,ADULT (TDVAX) 0.5 ML VIAL IM ONE (17:49)
[2023-01-15] MEDS: D5 1/2 NS w/20 mEq KCL 1,000 ML IV SCH (20:46)
[2023-01-16 05:56] LABS: #Eosinphils 0.1 thou/uL (0.0-0.7); #Monocytes 1.2 thou/uL (0.11-0.59); %Basophils 0.3 % (0.0-1.0); %Eosinophils 0.7 % (0.0-10.0); %Lymphocytes 7.3 % (21.0-51.0); %Monocytes 9.8 % (0.0-10.0); %Neutrophils 81.5 % (42.0-75.0); Hematocrit 37.5 % (36.0-47.0); Hemoglobin 12.1 g/dL (12.0-16.0); Mean Corpuscular HGB CONC 32.3 g/dL (32.0-36.0); Mean Corpuscular Hemoglobin 31.5 pg (27.0-31.0); Mean Corpuscular Volume 97.7 fl (78.0-98.0); Platelet Count 244 10x3/uL (130-400); RBC Distribution Width 12.2 % (11.5-14.5); Red Blood Cell (RBC) Count 3.84 mill/uL (4.20-5.40); White Blood Cell (WBC) Count 12.3 10x3/uL (4.8-10.8)
[2023-01-16 06:19] LABS: Anion Gap 15 mmol/L (10-20); BUN (Urea Nitrogen) 14 mg/dL (9.8-20.1); Calc. Creatinine Clearance 112 mL/min (70-130); Calcium 8.2 mg/dL (7.8-10.44); Carbon Dioxide 27 mmol/L (23-31); Chloride 100 mmol/L (98-107); Estimated GFR 74; Glucose 161 mg/dL (80-115); Potassium 3.9 mmol/L (3.5-5.1); Sodium 138 mmol/L (136-145)
[2023-01-16] MEDS: buPROPion HCl 100 MG TAB PO SCH (08:47)
[2023-01-16] MEDS: Ondansetron PF 4 MG/2 ML Vial IVP PRN (08:48)
[2023-01-16] MEDS: D5 1/2 NS w/20 mEq KCL 1,000 ML IV SCH ×3 (08:48→19:26)
[2023-01-16] MEDS ORDERED: Chlorthalidone 25 MG TAB PO SCH (09:00)
[2023-01-16] MEDS ORDERED: Losartan 25 MG TAB PO SCH (09:00)
[2023-01-16] MEDS ORDERED: FENTANYL 500 MCG/10 ML VIAL 500 MCG, Bupivacaine 0.75% 10 ML in Sodium Chloride 0.9% 80 ML EPIDURAL SCH (17:45)
[2023-01-17 05:34] LABS: #Eosinphils 0.4 thou/uL (0.0-0.7); #Monocytes 1.4 thou/uL (0.11-0.59); #Neutrophils 8.7 thou/uL (1.40-6.50); %Basophils 0.3 % (0.0-1.0); %Eosinophils 3.1 % (0.0-10.0); %Lymphocytes 12.2 % (21.0-51.0); %Monocytes 11.7 % (0.0-10.0); Hematocrit 32.4 % (36.0-47.0); Hemoglobin 10.3 g/dL (12.0-16.0); Mean Corpuscular HGB CONC 31.8 g/dL (32.0-36.0); Mean Corpuscular Hemoglobin 31.8 pg (27.0-31.0); Platelet Count 227 10x3/uL (130-400); RBC Distribution Width 12.3 % (11.5-14.5); Red Blood Cell (RBC) Count 3.24 mill/uL (4.20-5.40); White Blood Cell (WBC) Count 12.1 10x3/uL (4.8-10.8)
[2023-01-17 06:07] LABS: Anion Gap 15 mmol/L (10-20); BUN (Urea Nitrogen) 21 mg/dL (9.8-20.1); Calc. Creatinine Clearance 37 mL/min (70-130); Calcium 7.7 mg/dL (7.8-10.44); Carbon Dioxide 22 mmol/L (23-31); Chloride 100 mmol/L (98-107); Estimated GFR 20; Glucose 127 mg/dL (80-115); Potassium 3.9 mmol/L (3.5-5.1); Sodium 133 mmol/L (136-145)
[2023-01-17] MEDS: D5 1/2 NS w/20 mEq KCL 1,000 ML IV SCH (09:13)
[2023-01-17] MEDS: buPROPion HCl 100 MG TAB PO SCH (09:13)
[2023-01-17] MEDS ORDERED: Lactated Ringer's 1,000 ML IV SCH (11:00)
[2023-01-17 12:29] LABS: #Eosinphils 0.3 thou/uL (0.0-0.7); #Monocytes 1.4 thou/uL (0.11-0.59); #Neutrophils 9.2 thou/uL (1.40-6.50); %Basophils 0.2 % (0.0-1.0); %Eosinophils 2.6 % (0.0-10.0); %Lymphocytes 9.2 % (21.0-51.0); %Monocytes 11.6 % (0.0-10.0); %Neutrophils 75.8 % (42.0-75.0); Hematocrit 31.6 % (36.0-47.0); Hemoglobin 10.1 g/dL (12.0-16.0); Mean Corpuscular Hemoglobin 31.9 pg (27.0-31.0); Mean Corpuscular Volume 99.7 fl (78.0-98.0); Mean Platelet Volume 9.8 fL (7.4-10.4); Platelet Count 220 10x3/uL (130-400); RBC Distribution Width 12.2 % (11.5-14.5); Red Blood Cell (RBC) Count 3.17 mill/uL (4.20-5.40); White Blood Cell (WBC) Count 12.1 10x3/uL (4.8-10.8)
[2023-01-17] MEDS: Ondansetron PF 4 MG/2 ML Vial IVP PRN (12:44)
[2023-01-17 12:46] LABS: Lactic Acid 2.2 mmol/L (0.5-2.2)
[2023-01-17] MEDS: Sodium Chloride 0.9% 1,000 ML IV SCH (12:46)
[2023-01-17 12:58] LABS: ALT (SGPT) 27 U/L (8-55); AST (SGOT) 65 U/L (5-34); Albumin 3.3 g/dL (3.4-4.8); Alkaline Phosphatase 72 U/L (40-110); Anion Gap 14 mmol/L (10-20); BUN (Urea Nitrogen) 18 mg/dL (9.8-20.1); Bilirubin, Total 0.5 mg/dL (0.2-1.2); Calc. Creatinine Clearance 56 mL/min (70-130); Calcium 7.9 mg/dL (7.8-10.44); Carbon Dioxide 23 mmol/L (23-31); Chloride 100 mmol/L (98-107); Estimated GFR 32; Globulin 2.9 g/dL (2.4-3.5); Glucose 142 mg/dL (80-115); Potassium 4.1 mmol/L (3.5-5.1); Protein, Total 6.2 g/dL (5.8-8.1); Sodium 133 mmol/L (136-145)
[2023-01-17] MEDS: Morphine 2 MG/ML VIAL SLOW IVP PRN ×7 (13:25→23:53)
[2023-01-17] MEDS ORDERED: Ropivacaine 0.2% HCl/PF (40 MG/20 ML VIAL) EPIDURAL SCH (20:30)
[2023-01-17] MEDS: Famotidine/PF 20 mg/2ml Vial SLOW IVP SCH (21:49)
[2023-01-18] MEDS: Sodium Chloride 0.9% 1,000 ML IV SCH ×2 (01:47→18:30)
[2023-01-18] MEDS: Morphine 2 MG/ML VIAL SLOW IVP PRN ×2 (04:07→08:07)
[2023-01-18 04:50] LABS: #Eosinphils 0.2 thou/uL (0.0-0.7); #Monocytes 1.3 thou/uL (0.11-0.59); %Basophils 0.2 % (0.0-1.0); %Eosinophils 2.4 % (0.0-10.0); %Lymphocytes 10.3 % (21.0-51.0); %Monocytes 13.1 % (0.0-10.0); %Neutrophils 73.4 % (42.0-75.0); Hematocrit 29.8 % (36.0-47.0); Hemoglobin 9.6 g/dL (12.0-16.0); Mean Corpuscular HGB CONC 32.2 g/dL (32.0-36.0); Mean Corpuscular Hemoglobin 31.9 pg (27.0-31.0); Mean Platelet Volume 9.9 fL (7.4-10.4); Platelet Count 224 10x3/uL (130-400); RBC Distribution Width 12.4 % (11.5-14.5); Red Blood Cell (RBC) Count 3.01 mill/uL (4.20-5.40); White Blood Cell (WBC) Count 9.6 10x3/uL (4.8-10.8)
[2023-01-18 05:36] LABS: Anion Gap 12 mmol/L (10-20); BUN (Urea Nitrogen) 11 mg/dL (9.8-20.1); Calc. Creatinine Clearance 112 mL/min (70-130); Carbon Dioxide 24 mmol/L (23-31); Chloride 104 mmol/L (98-107); Estimated GFR 74; Glucose 127 mg/dL (80-115); Potassium 4.3 mmol/L (3.5-5.1); Sodium 136 mmol/L (136-145)
[2023-01-18] MEDS: Famotidine/PF 20 mg/2ml Vial SLOW IVP SCH (09:52)
[2023-01-18] MEDS: buPROPion HCl 100 MG TAB PO SCH (10:03)
[2023-01-18] MEDS ORDERED: HYDROcodone/Acetaminophen 10/325 mg Tablet PO PRN (11:15)
[2023-01-18] MEDS ORDERED: Furosemide 40 MG/4 ML VIAL SLOW IVP SCH (14:15)
[2023-01-18] MEDS ORDERED: Ipratropium/Albuterol 3 ML NEB NEB SCH ×2 (14:30→19:00)
[2023-01-18] MEDS: Ipratropium/Albuterol 3 ML NEB NEB SCH ×2 (18:35→23:44)
[2023-01-18] MEDS ORDERED: Polyethylene Glycol 3350 17 GM Packet PO SCH (20:00)
[2023-01-18] MEDS: Famotidine 20 MG TAB PO SCH (20:38)
[2023-01-18] MEDS: HYDROcodone/Acetaminophen 10/325 mg Tablet PO PRN (20:55)
[2023-01-19] MEDS: HYDROcodone/Acetaminophen 10/325 mg Tablet PO PRN (05:13)
[2023-01-19 05:29] LABS: #Eosinphils 0.2 thou/uL (0.0-0.7); #Monocytes 0.9 thou/uL (0.11-0.59); #Neutrophils 4.3 thou/uL (1.40-6.50); %Basophils 0.3 % (0.0-1.0); %Eosinophils 3.4 % (0.0-10.0); %Lymphocytes 19.6 % (21.0-51.0); %Monocytes 13.5 % (0.0-10.0); %Neutrophils 62.3 % (42.0-75.0); Hemoglobin 9.4 g/dL (12.0-16.0); Mean Corpuscular HGB CONC 32.4 g/dL (32.0-36.0); Mean Corpuscular Volume 98.6 fl (78.0-98.0); Mean Platelet Volume 9.5 fL (7.4-10.4); Platelet Count 260 10x3/uL (130-400); RBC Distribution Width 12.3 % (11.5-14.5); Red Blood Cell (RBC) Count 2.94 mill/uL (4.20-5.40); White Blood Cell (WBC) Count 6.8 10x3/uL (4.8-10.8)
[2023-01-19 05:51] LABS: Anion Gap 14 mmol/L (10-20); BUN (Urea Nitrogen) 9 mg/dL (9.8-20.1); Calc. Creatinine Clearance 124 mL/min (70-130); Calcium 8.9 mg/dL (7.8-10.44); Carbon Dioxide 28 mmol/L (23-31); Chloride 100 mmol/L (98-107); Estimated GFR 77; Glucose 132 mg/dL (80-115); Potassium 3.7 mmol/L (3.5-5.1); Sodium 138 mmol/L (136-145)
[2023-01-19] MEDS: buPROPion HCl 100 MG TAB PO SCH (09:30)
[2023-01-19] MEDS: Famotidine 20 MG TAB PO SCH ×2 (09:30→20:08)
[2023-01-19] MEDS: Polyethylene Glycol 3350 17 GM Packet PO SCH (09:30)
[2023-01-19] MEDS ORDERED: Furosemide 20 MG/2 ML VIAL SLOW IVP SCH (10:15)
[2023-01-19] MEDS: Ipratropium/Albuterol 3 ML NEB NEB SCH ×4 (18:13→23:02)
[2023-01-20] MEDS: HYDROcodone/Acetaminophen 10/325 mg Tablet PO PRN (01:06)
[2023-01-20] MEDS: Ondansetron PF 4 MG/2 ML Vial IVP PRN (05:10)
[2023-01-20] MEDS ORDERED: Morphine 4 MG/ML VIAL SLOW IVP PRN (07:30)
[2023-01-20] MEDS ORDERED: Morphine 2 MG/ML VIAL SLOW IVP PRN (07:30)
[2023-01-20] MEDS: Ipratropium/Albuterol 3 ML NEB NEB SCH ×3 (07:57→19:27)
[2023-01-20] MEDS: D5 1/2 NS w/20 mEq KCL 1,000 ML IV SCH ×2 (09:23→18:04)
[2023-01-20] MEDS: buPROPion HCl 100 MG TAB PO SCH (09:24)
[2023-01-20] MEDS: Famotidine 20 MG TAB PO SCH (09:24)
[2023-01-20] MEDS: Polyethylene Glycol 3350 17 GM Packet PO SCH (09:24)
[2023-01-20] MEDS ORDERED: Fleet Saline Enema 133 ML BOT PR SCH (15:45)
[2023-01-20] MEDS: Famotidine/PF 20 mg/2ml Vial SLOW IVP SCH (19:43)
[2023-01-21] MEDS: Ipratropium/Albuterol 3 ML NEB NEB SCH ×5 (00:28→22:37)
[2023-01-21] MEDS: D5 1/2 NS w/20 mEq KCL 1,000 ML IV SCH ×4 (00:47→21:13)
[2023-01-21 04:50] VITALS: BMI 42.7
[2023-01-21 06:25] LABS: Anion Gap 17 mmol/L (10-20); BUN (Urea Nitrogen) 11 mg/dL (9.8-20.1); Calc. Creatinine Clearance 112 mL/min (70-130); Calcium 8.8 mg/dL (7.8-10.44); Carbon Dioxide 26 mmol/L (23-31); Chloride 98 mmol/L (98-107); Estimated GFR 76; Glucose 139 mg/dL (80-115); Potassium 3.8 mmol/L (3.5-5.1); Sodium 137 mmol/L (136-145)
[2023-01-21 06:47] LABS: Hematocrit 30.3 % (36.0-47.0); Hemoglobin 9.7 g/dL (12.0-16.0); Mean Corpuscular Hemoglobin 30.8 pg (27.0-31.0); Mean Corpuscular Volume 96.2 fl (78.0-98.0); Mean Platelet Volume 10.9 fL (7.4-10.4); Platelet Count 322 10x3/uL (130-400); RBC Distribution Width 12.5 % (11.5-14.5); Red Blood Cell (RBC) Count 3.15 mill/uL (4.20-5.40)
[2023-01-21] MEDS: Polyethylene Glycol 3350 17 GM Packet PO SCH (08:55)
[2023-01-21] MEDS: buPROPion HCl 100 MG TAB PO SCH (08:55)
[2023-01-21] MEDS: Famotidine/PF 20 mg/2ml Vial SLOW IVP SCH ×2 (09:21→21:14)
[2023-01-22] MEDS: Ipratropium/Albuterol 3 ML NEB NEB SCH ×3 (08:29→19:06)
[2023-01-22] MEDS: buPROPion HCl 100 MG TAB PO SCH (10:27)
[2023-01-22] MEDS: Polyethylene Glycol 3350 17 GM Packet PO SCH (10:32)
[2023-01-22] MEDS: Famotidine/PF 20 mg/2ml Vial SLOW IVP SCH ×2 (10:32→21:10)
[2023-01-22] MEDS: D5 1/2 NS w/20 mEq KCL 1,000 ML IV SCH ×2 (11:04→15:17)
[2023-01-23] MEDS: Ipratropium/Albuterol 3 ML NEB NEB SCH ×3 (00:27→12:56)
[2023-01-23] MEDS: D5 1/2 NS w/20 mEq KCL 1,000 ML IV SCH (06:38)
[2023-01-23 08:17] VITALS: TEMP 98.4
[2023-01-23] MEDS: buPROPion HCl 100 MG TAB PO SCH (08:49)
[2023-01-23] MEDS: Famotidine/PF 20 mg/2ml Vial SLOW IVP SCH (08:52)
[2023-01-23] MEDS: Polyethylene Glycol 3350 17 GM Packet PO SCH (08:53)
[2023-01-23 16:13] VITALS: BP 136/80
== END 2023-01-23 16:10 | disposition home or self-care (01) | DRG 354 ==
LOC: SURG A 01-15 10:53 → SURG B 01-15 19:47 → CCU 01-17 10:51 → SURG B 01-18 09:22
PROVIDERS: ADMIT Specialist; ATTEND Specialist
PROC: 0WUF0JZ Supplement Abdominal Wall with Synthetic Substitute, Open Approach (ICD-10-PCS; principal; 2023-01-15)
PROC: 0HD7XZZ Extraction of Abdomen Skin, External Approach (ICD-10-PCS; 2023-01-15)
PROC: 3E0R3BZ Introduction of Anesthetic Agent into Spinal Canal, Percutaneous Approach (ICD-10-PCS; 2023-01-15)
DX: K43.0 Incisional hernia with obstruction, without gangrene (principal); E87.1 Hypo-osmolality and hyponatremia; Z68.42 Body mass index [BMI] 45.0-49.9, adult; N17.9 Acute kidney failure, unspecified; E66.01 Morbid (severe) obesity due to excess calories; R00.0 Tachycardia, unspecified; I95.9 Hypotension, unspecified
CPT/HCPCS: 36415; 71045; 74018; 80048; 83605; 85025; 94640; C1781; J0171; J1100; J1650; J1885; J1940; J2001; J2250; J2272; J2405; J2704; J2795; J3010; J3480; J3490; J7050; J7120; J7620; S0020; S0028

== ENCOUNTER 2023-01-31 14:40 | Inpatient (IN) | payer MEDICARE ==
[~2023-01-31 14:40] MED LIST changes: +Iopamidol-370 76% 500 ML MDV (1 ML CHARGE) ONE; -Lidocaine 1% PF 5 ML VIAL ONE; -Ondansetron PF 4 MG/2 ML Vial ONE; -PHENYLEPHRINE-NS 100 MCG/ML 10 ML SYRINGE ONE; -PROPOFOL 200 MG/20 ML VIAL ONE; -Rocuronium Bromide 10 MG/ML (10ML VIAL) ONE; -ePHEDrine/0.9% NaCl/PF SYRINGE 50 mg/10 ml ONE
[2023-01-31] MEDS ORDERED: Sodium Chloride 0.9% 1,000 ML IV SCH ×2 (17:00→20:45)
[2023-01-31 17:02] VITALS: BMI 40.6
[2023-01-31 17:42] LABS: #Eosinphils 0.3 thou/uL (0.0-0.7); #Monocytes 1.1 thou/uL (0.11-0.59); #Neutrophils 8.9 thou/uL (1.40-6.50); %Basophils 0.3 % (0.0-1.0); %Eosinophils 2.7 % (0.0-10.0); %Lymphocytes 11.3 % (21.0-51.0); %Monocytes 9.5 % (0.0-10.0); %Neutrophils 74.9 % (42.0-75.0); Hematocrit 30.3 % (36.0-47.0); Hemoglobin 10.2 g/dL (12.0-16.0); Mean Corpuscular HGB CONC 33.7 g/dL (32.0-36.0); Mean Corpuscular Hemoglobin 30.7 pg (27.0-31.0); Mean Corpuscular Volume 91.3 fl (78.0-98.0); Mean Platelet Volume 9.5 fL (7.4-10.4); Platelet Count 503 10x3/uL (130-400); RBC Distribution Width 12.9 % (11.5-14.5); Red Blood Cell (RBC) Count 3.32 mill/uL (4.20-5.40); White Blood Cell (WBC) Count 11.8 10x3/uL (4.8-10.8)
[2023-01-31 18:11] LABS: Anion Gap 21 mmol/L (10-20); BUN (Urea Nitrogen) 36 mg/dL (9.8-20.1); Calc. Creatinine Clearance 29 mL/min (70-130); Calcium 9.3 mg/dL (7.8-10.44); Carbon Dioxide 20 mmol/L (23-31); Chloride 98 mmol/L (98-107); Estimated GFR 16; Glucose 114 mg/dL (80-115); Potassium 3.8 mmol/L (3.5-5.1); Sodium 135 mmol/L (136-145)
[2023-01-31] MEDS: Vancomycin 1 GM in Premix 1 BAG IVPB SCH (18:19)
[2023-02-01] MEDS ORDERED: Sodium Chloride 0.9% 1,000 ML IV SCH (04:45)
[2023-02-01 05:46] LABS: #Eosinphils 0.6 thou/uL (0.0-0.7); #Monocytes 1.4 thou/uL (0.11-0.59); #Neutrophils 8.5 thou/uL (1.40-6.50); %Basophils 0.3 % (0.0-1.0); %Lymphocytes 10.4 % (21.0-51.0); %Monocytes 11.9 % (0.0-10.0); %Neutrophils 71.2 % (42.0-75.0); Hematocrit 26.9 % (36.0-47.0); Mean Corpuscular HGB CONC 33.5 g/dL (32.0-36.0); Mean Corpuscular Hemoglobin 31.6 pg (27.0-31.0); Mean Platelet Volume 9.7 fL (7.4-10.4); Platelet Count 455 10x3/uL (130-400); RBC Distribution Width 13.1 % (11.5-14.5); Red Blood Cell (RBC) Count 2.85 mill/uL (4.20-5.40)
[2023-02-01] MEDS: Vancomycin 1 GM in Premix 1 BAG IVPB SCH (05:56)
[2023-02-01] MEDS: HYDROcodone/Acetaminophen 7.5/325 mg Tablet PO PRN ×2 (06:06→19:28)
[2023-02-01 06:11] LABS: Mean Corpuscular Volume 94.4 fl (78.0-98.0)
[2023-02-01 06:16] LABS: Anion Gap 15 mmol/L (10-20); BUN (Urea Nitrogen) 29 mg/dL (9.8-20.1); Calc. Creatinine Clearance 39 mL/min (70-130); Calcium 8.4 mg/dL (7.8-10.44); Carbon Dioxide 23 mmol/L (23-31); Chloride 101 mmol/L (98-107); Estimated GFR 23; Glucose 114 mg/dL (80-115); Sodium 136 mmol/L (136-145)
[2023-02-01] MEDS: buPROPion HCl 100 MG TAB PO SCH (08:46)
[2023-02-01] MEDS: Chlorthalidone 25 MG TAB PO SCH (08:46)
[2023-02-01] MEDS: Potassium Chloride 30 MEQ in Sodium Chloride 0.9% 1,000 ML IV SCH ×2 (09:44→19:25)
[2023-02-01] MEDS ORDERED: Vancomycin Dose by Levels Sliding Scale (Wt > 99) FS SCH (12:15)
[2023-02-01] MEDS ORDERED: fentaNYL 50 mcg/mL 1 mL Vial ONE ×2 (14:39→15:25)
[2023-02-01] MEDS ORDERED: PROPOFOL 20 ML ONE (14:39)
[2023-02-01] MEDS ORDERED: Lidocaine 1% PF 5 ML VIAL ONE ×2 (14:39→14:43)
[2023-02-01] MEDS ORDERED: Dexamethasone 20 MG/5 ML VIAL ONE (14:43)
[2023-02-01] MEDS ORDERED: PROPOFOL 200 MG/20 ML VIAL ONE (14:43)
[2023-02-01] MEDS ORDERED: Ondansetron PF 4 MG/2 ML Vial ONE ×2 (14:43→14:53)
[2023-02-01] MEDS ORDERED: PHENYLEPHRINE-NS 100 MCG/ML 10 ML SYRINGE ONE ×3 (14:43→15:33)
[2023-02-01] MEDS ORDERED: Dexamethasone 4 mg/ml Vial ONE (14:53)
[2023-02-01] MEDS ORDERED: EPINEPHrine 1 MG/ML VIAL ONE (15:05)
[2023-02-01] MEDS ORDERED: Bupivacaine 0.25% HCL 30 ML VIAL ONE (15:05)
[2023-02-01] MEDS ORDERED: Vancomycin HCl 750 MG in Sodium Chloride 0.9% 250 ML 250 ML IVPB SCH (18:15)
[2023-02-02] MEDS: HYDROcodone/Acetaminophen 7.5/325 mg Tablet PO PRN ×5 (00:10→20:56)
[2023-02-02] MEDS: Potassium Chloride 30 MEQ in Sodium Chloride 0.9% 1,000 ML IV SCH ×3 (03:10→13:26)
[2023-02-02 06:08] LABS: Hematocrit 27.7 % (36.0-47.0); Hemoglobin 8.8 g/dL (12.0-16.0); Manual Diff?? YES; Mean Corpuscular HGB CONC 31.8 g/dL (32.0-36.0); Mean Corpuscular Hemoglobin 31.1 pg (27.0-31.0); Mean Corpuscular Volume 97.9 fl (78.0-98.0); Mean Platelet Volume 9.7 fL (7.4-10.4); Platelet Count 479 10x3/uL (130-400); RBC Distribution Width 13.2 % (11.5-14.5); Red Blood Cell (RBC) Count 2.83 mill/uL (4.20-5.40); White Blood Cell (WBC) Count 8.5 10x3/uL (4.8-10.8)
[2023-02-02 06:25] LABS: Delete Auto Diff?? YES
[2023-02-02 06:52] LABS: CellaVision Operator ID lab.abc; Eosinophils 1 % (0-10); Hypochromia SLIGHT = 6-15 cells HPF (0-5); Lymphocytes 7 % (21-51); Metamyelocyte 1 % (0-0); Monocytes 13 % (0-10); Neutrophil 76 % (42-75); Platelet Adequacy Comment Platelets Increased; Smudge Cells 9.9 %; Total Cell Count 101
[2023-02-02 08:17] LABS: Anion Gap 11 mmol/L (10-20); BUN (Urea Nitrogen) 17 mg/dL (9.8-20.1); Calc. Creatinine Clearance 80 mL/min (70-130); Calcium 8.2 mg/dL (7.8-10.44); Carbon Dioxide 24 mmol/L (23-31); Chloride 108 mmol/L (98-107); Estimated GFR 54; Glucose 113 mg/dL (80-115); Potassium 4.3 mmol/L (3.5-5.1); Sodium 139 mmol/L (136-145)
[2023-02-02] MEDS: buPROPion HCl 100 MG TAB PO SCH (08:41)
[2023-02-02] MEDS: Chlorthalidone 25 MG TAB PO SCH (08:42)
[2023-02-02] MEDS: Ferrous Sulfate 325 MG TAB PO SCH (16:47)
[2023-02-02] MEDS: 1/2 NS w/KCL 20 mEq 1,000 ML IV SCH (16:47)
[2023-02-02] MEDS ORDERED: Vancomycin HCl 750 MG in Sodium Chloride 0.9% 250 ML 250 ML IVPB SCH (21:00)
[2023-02-03] MEDS: HYDROcodone/Acetaminophen 7.5/325 mg Tablet PO PRN ×2 (03:11→09:00)
[2023-02-03] MEDS: 1/2 NS w/KCL 20 mEq 1,000 ML IV SCH ×3 (03:12→23:18)
[2023-02-03] MEDS: Ferrous Sulfate 325 MG TAB PO SCH ×2 (08:59→16:38)
[2023-02-03] MEDS: buPROPion HCl 100 MG TAB PO SCH (08:59)
[2023-02-03] MEDS: Chlorthalidone 25 MG TAB PO SCH (08:59)
[2023-02-03] MEDS: Morphine 4 MG/ML VIAL SLOW IVP PRN (11:09)
[2023-02-03 20:34] LABS: Vancomycin, Trough 9.7 ug/mL
[2023-02-03] MEDS ORDERED: Vancomycin 1 GM in Premix 1 BAG IVPB SCH (21:00)
[2023-02-04] MEDS: Morphine 4 MG/ML VIAL SLOW IVP PRN ×4 (01:50→21:40)
[2023-02-04 08:46] LABS: Hematocrit 31.6 % (36.0-47.0); Hemoglobin 10.1 g/dL (12.0-16.0); Manual Diff?? YES; Mean Corpuscular Volume 96.9 fl (78.0-98.0); Mean Platelet Volume 9.4 fL (7.4-10.4); Platelet Count 484 10x3/uL (130-400); RBC Distribution Width 13.1 % (11.5-14.5); Red Blood Cell (RBC) Count 3.26 mill/uL (4.20-5.40); White Blood Cell (WBC) Count 7.8 10x3/uL (4.8-10.8)
[2023-02-04 08:48] LABS: Delete Auto Diff?? YES
[2023-02-04 09:17] LABS: Anion Gap 14 mmol/L (10-20); BUN (Urea Nitrogen) 7 mg/dL (9.8-20.1); Calc. Creatinine Clearance 122 mL/min (70-130); Carbon Dioxide 23 mmol/L (23-31); Chloride 105 mmol/L (98-107); Estimated GFR 89; Glucose 96 mg/dL (80-115); Potassium 4.5 mmol/L (3.5-5.1); Sodium 137 mmol/L (136-145)
[2023-02-04 09:29] LABS: Anisocytosis SLIGHT = 6-15 cells HPF (0-5); Band 4 % (5-11); CellaVision Operator ID lab.dlt; Eosinophils 15 % (0-10); Hypochromia SLIGHT = 6-15 cells HPF (0-5); Lymphocytes 15 % (21-51); Monocytes 8 % (0-10); Neutrophil 58 % (42-75); Platelet Adequacy Comment Platelets Increased; Poikilocytosis SLIGHT = 6-15 cells HPF (0-5); Polychromasia SLIGHT = 2-3 cells HPF (0-2); Total Cell Count 99
[2023-02-04] MEDS: 1/2 NS w/KCL 20 mEq 1,000 ML IV SCH ×2 (09:38→13:55)
[2023-02-04] MEDS: buPROPion HCl 100 MG TAB PO SCH (09:38)
[2023-02-04] MEDS: Chlorthalidone 25 MG TAB PO SCH (09:38)
[2023-02-04] MEDS: Ferrous Sulfate 325 MG TAB PO SCH ×2 (09:38→17:56)
[2023-02-04] MEDS ORDERED: 1/2 NS w/KCL 20 mEq 1,000 ML IV SCH (09:45)
[2023-02-04] MEDS: HYDROcodone/Acetaminophen 7.5/325 mg Tablet PO PRN ×3 (12:53→17:56)
[2023-02-04] MEDS: Vancomycin 1 GM in Premix 1 BAG IVPB SCH (13:55)
[2023-02-05] MEDS: Vancomycin 1 GM in Premix 1 BAG IVPB SCH (01:26)
[2023-02-05] MEDS: HYDROcodone/Acetaminophen 7.5/325 mg Tablet PO PRN ×2 (01:29→10:12)
[2023-02-05] MEDS ORDERED: 1/2 NS w/KCL 20 mEq 1,000 ML IV SCH (07:47)
[2023-02-05] MEDS: Ferrous Sulfate 325 MG TAB PO SCH (10:09)
[2023-02-05] MEDS: buPROPion HCl 100 MG TAB PO SCH (10:09)
[2023-02-05] MEDS: Chlorthalidone 25 MG TAB PO SCH (10:09)
[2023-02-05] MEDS: 1/2 NS w/KCL 20 mEq 1,000 ML IV SCH (10:10)
[2023-02-05 11:59] VITALS: BP 144/87; TEMP 98.3
[2023-02-05 12:55] LABS: Vancomycin, Trough 20.8 ug/mL
[2023-02-05] MEDS ORDERED: Vancomycin HCl 750 MG in Sodium Chloride 0.9% 250 ML 250 ML IVPB SCH (16:00)
== END 2023-02-05 16:11 | disposition home or self-care (01) | DRG 857 ==
LOC: SURG A 14:40
PROVIDERS: ADMIT Specialist; ATTEND Specialist
PROC: 0W9F0ZZ Drainage of Abdominal Wall, Open Approach (ICD-10-PCS; principal; 2023-02-01)
PROC: 0JB80ZZ Excision of Abdomen Subcutaneous Tissue and Fascia, Open Approach (ICD-10-PCS; 2023-02-01)
PROC: 0KBL0ZZ Excision of Left Abdomen Muscle, Open Approach (ICD-10-PCS; 2023-02-01)
PROC: 0KBK0ZZ Excision of Right Abdomen Muscle, Open Approach (ICD-10-PCS; 2023-02-01)
PROC: 0W9F3ZZ Drainage of Abdominal Wall, Percutaneous Approach (ICD-10-PCS; 2023-02-01)
DX: T81.49XA Infection following a procedure, other surgical site, initial encounter (principal); L02.211 Cutaneous abscess of abdominal wall; T81.31XA Disruption of external operation (surgical) wound, not elsewhere classified, initial encounter; L76.34 Postprocedural seroma of skin and subcutaneous tissue following other procedure; Z68.41 Body mass index [BMI] 40.0-44.9, adult; F32.A Depression, unspecified; E11.9 Type 2 diabetes mellitus without complications; I10 Essential (primary) hypertension; E66.01 Morbid (severe) obesity due to excess calories; K43.2 Incisional hernia without obstruction or gangrene; Y83.8 Other surgical procedures as the cause of abnormal reaction of the patient, or of later complication, without mention of misadventure at the time of the procedure; Z90.710 Acquired absence of both cervix and uterus; Z98.890 Other specified postprocedural states
CPT/HCPCS: 36415; 74177; 80048; 80202; 82565; 85025; 87070; 87077; 87186; 87205; 97139; A4314; J0171; J1100; J2270; J2405; J2704; J3010; J3370; J3370-JW; J3480; J7050; Q9967; S0020